=== PATIENT | female | born 1975 | race Caucasian/White ===

== ENCOUNTER 2018-01-23 20:50 | Emergency (ER) | payer OTHER ==
[~2018-01-23] VITALS: Ht 172.7 cm; Wt 108.9 kg
[2018-01-23 21:10] VITALS: BP 138/81
== END 2018-01-24 | disposition left against medical advice (07) ==
LOC: ER 20:50
DX: M54.9 Dorsalgia, unspecified (principal); Z53.21 Procedure and treatment not carried out due to patient leaving prior to being seen by health care provider

== ENCOUNTER 2021-10-01 00:22 | Emergency (ER) | payer OTHER ==
[~2021-10-01] VITALS: Ht 172.7 cm; Wt 145.1 kg
[2021-10-01 00:32] VITALS: BP 117/70
[2021-10-01] MEDS ORDERED: EPIN0.3I24 IJ (03:27)
[2021-10-01] MEDS ORDERED: DexAMETHasone SOD PHOS 10MG/1ML VIAL INJ PO ONE (03:30)
== END 2021-10-01 03:50 | disposition home or self-care (01) ==
LOC: EDBD 00:22 → ER 00:22
DX: T78.2XXA Anaphylactic shock, unspecified, initial encounter (principal); Z88.1 Allergy status to other antibiotic agents; Z88.8 Allergy status to other drugs, medicaments and biological substances
CPT/HCPCS: 99283; J1100

== ENCOUNTER 2024-11-14 17:03 | Emergency (ER) | payer OTHER ==
[~2024-11-14] VITALS: Ht 172.7 cm; Wt 150.8 kg
[~2024-11-14 17:03] MED LIST: EPIN0.3I24 IJ
[2024-11-14 17:28] VITALS: TEMP 98.4
--- NOTE | 2024-11-14 17:37 | ED.PDOC ---
Musculoskeletal HPI Comments 49 year old female presents to the ED with a chief complaint of LT lower leg pain onset last night. Patient states she began experiencing pain and swelling to LT lower leg last night, woke up this morning and noticed symptoms worsened. She also noticed mild erythema to LT leg. PMHx superficial clot, asthma, MS. Denies fall, injury, trauma, recent travel, fevers, chills, nausea, vomiting, shortness of breath. No other symptoms or modifying factors present at this time. Chief Complaint: Lower Extremity Time Seen by MD: 17:25 Primary Care Provider: ROSE MARIE Rodriguez Notes: Medications, Allergies Allergies: Coded Allergies: Iodine (Verified Allergy, Unknown, 01/23/18) Vancomycin (Verified Allergy, Unknown, 01/23/18) Venlafaxine (Verified Allergy, Unknown, 01/23/18) Home Meds Active Scripts Epinephrine (Epinephrine) 0.3 Mg/0.3 Ml Inj, 0.3 MG IJ ONCE PRN, #1 INJ 1 Refill Prov:MARCO OH MD 10/01/21 Information Source: Patient Mode of Arrival: Ambulatory Location: Left Extremity Location: Leg Timing: Days Prehospital treatment: None Severity: Moderate Able to Move Extremity: Yes Bear Weight: Limited Pain: Moderate Mechanism: Spontaneous Circumstances: Spontaneous Onset of Symptoms: Spontaneous Symptoms: Swelling, Pain DVT Risk Factors: NONE Associated signs and symptoms: Leg pain Past Medical History PAST MEDICAL HISTORY: Asthma Past Medical History (Other): MS, superficial clot RT leg Surgical History: Denies all surgeries HIDE COOKING OPERATOR History: No Pertinent HIDE COOKING OPERATOR History Family History Family History: Reviewed,noncontributory to illness Social History Smoker: Non-Smoker Alcohol: Denies ETOH Use Drugs: Denies Drug Use Lives In: Home Constitutional: denies: chills, diaphoresis, fatigue, fever, malaise, sweats, weakness, others EENTM: denies: blurred vision, double vision, ear bleeding, ear discharge, ear drainage, ear pain, ear ringing, eye pain, eye redness, hearing loss, mouth pain, mouth swelling, nasal discharge, nose bleeding, nose congestion, nose pain, photophobia, tearing, throat pain, throat swelling, voice changes, others Respiratory: denies: cough, hemoptysis, orthopnea, SOB at rest, shortness of breath, SOB with excertion, stridor, wheezing, others Cardiovascular: denies: chest pain, dizzy spells, diaphoresis, Dyspnea on exertion, edema, irregular heart beat, left arm pain, lightheadedness, pal pitations, PND, syncope, others Gastrointestinal: denies: abdomen distended, abdominal pain, blood streaked bowels, constipated, diarrhea, dysphagia, difficulty swallowing, hematemesis, melena, nausea, poor appetite, poor fluid intake, rectal bleeding, rectal pain, vomiting, others Genitourinary: denies: abnormal vagina bleeding, burning, dyspareunia, dysuria, flank pain, frequency, hematuria, incontinence, pain, , vagina discharge, urgency, others Neurological: denies: dizziness, fainting, headache, left sided numbness, left sided weakness, numbness, paresthesia, pre-existing deficit, right sided numbness, right sided weakness, seizure, speech problems, tingling, tremors, weakness, others Musculoskeletal: reports: others (LLE pain and swelling); denies: back pain, gout, joint pain, joint swelling, muscle pain, muscle stiffness, neck pain Integumetry: denies: bruises, change in color, change in hair/nails, dryness, laceration, lesions, lumps, rash, wounds, others Allergic/Immunocompromised: denies: Difficulty Healing, Frequent Infections, Hives, Itching, others Hematologic/Lymphatic: denies: anemia, blood clots, easy bleeding, easy bruising, swollen glands, others Endocrine: denies: excessive hunger, excessive sweating, excessive thirst, excessive urination, flushing, intolerance to cold, intolerance to heat, unexplained weight gain, unexplained weight loss, others Psychiatric: denies: anxiety, bipolar disorder, depression, hopeless, panic disorder, schizophrenia, sleepless, suicidal, others All Other Systems: Reviewed and Negative Physical Exam General Appearance: Normal HEENT: Normal ENT Inspection, Pharynx Normal, TMs Normal Neck: Full Range of Motion, Non-Tender, Normal, Normal Inspection Respiratory: Chest Non-Tender, Lungs Clear, No Accessory Muscle Use, No Respiratory Distress, Normal Breath Sounds Cardiovascular: No Edema, No JVD, No Murmur, No Gallop, Normal Peripheral Pulses, Regular Rate/Rhythm Breast Exam: Deferred Gastrointestinal: No Organomegaly, Non Tender, No Pulsatile Mass, Normal Bowel Sounds, Soft Genitalia: Deferred Pelvic: Deferred Rectal: Deferred Extremities: No calf tenderness, Normal capillary refill Musculoskeletal : Location: Left Extremity Location: Leg (lower leg with mild erythema to anterior aspect, TTP, warm to touch) Apperance: Normal Neurologic: Alert, ultimate hoops referee II-XII nml as Tested, No Motor Deficits, Normal Affect, Normal Mood, No Sensory Deficits Cerebellar Function: Normal Reflexes: Normal Skin: Dry, Normal Color, Warm Lymphatic: No Adenopathy Was a procedure done? Was a procedure done?: No Differential Diagnosis EXT Differential Diagnosis: Cellulitis, Deep Vein Thrombosis, Gout, Neurovascular injury X-Ray, Labs, Meds, VS Vital Signs Date Time Temp Pulse Resp B/P (MAP) Pulse Ox O2 Delivery O2 Flow Rate FiO2 11/14/24 18:48 75 18 111/74 (86) 97 11/14/24 18:48 93 18 98 Room Air 11/14/24 17:28 98.4 103 18 152/94 (113) 99 98.4 PATIENT: WILDER DELANEY ACCT: [id number] UNIT: [id number] : 1975 LOC: ER ROOM / BED: / AGE / SEX: 49 / F ADM STATUS: REG ER SERVICE 13 ORDERING PHYSICIAN: LAZARUS GAVIRIA PROCEDURE(s): LLDVT - LT Lower DVT REASON: left leg swelling ORDER NUMBER(s): [id number], ACCESSION NUMBER(s): [id number] Procedure: US LT Lower DVT Study Date and Requested Time: 11/14/2024 06:16 PM History: left leg swelling Comparison: None Technique: Multiple high resolution quinn-scale images with and without compression obtained of the left lower extremity veins, including the common femoral vein, deep femoral vein, proximal mid and distal superficial femoral vein, and popliteal vein. Additional limited images of the greater saphenous vein also obtained. Augmentation performed as indicated. Color and spectral doppler flow images obtained as indicated. Findings: No visible intraluminal venous thrombus. No evidence of incompressibility or abnormal color or spectral Doppler flow visualized in the left lower extremity veins including, the common femoral vein, deep femoral vein, proximal mid and distal superficial femoral vein, and popliteal vein. Greater saphenous vein grossly unremarkable. Impression: No sonographic evidence of left lower extremity deep venous thrombosis. X-Ray, Labs, Meds, VS Comment Imaging: X-rays and CT scans were reviewed and interpreted by this provider, imaging shows no fractures and no pathological disease. Pending radiology review. Laboratory: Labs reviewed and interpreted by this provider. No significant abnormalities noted. Patient has prior medical visits reviewed. Med reconciliation performed Vital signs reviewed Time of 1ST Reevaluation: 17:55 Reevaluation 1ST: Unchanged Patient Education/Counseling: Diagnosis, Treatment, Prognosis, Need For Follow Up (Follow up with the PCP in next 2-4 days. Return to emergency department if symptoms worsen over the next 24 hours.) Family Education/Counseling: No Family Present Departure 1 Departure Time of Disposition: 20:03 Impression: Primary Impression: Cellulitis Qualified Codes: L03.116 - Cellulitis of left lower limb Disposition: HOME / SELF CARE / HOMELESS Condition: Fair e-Prescriptions Amoxicillin & Pot Clavulanate (AUGMENTIN TABLET) 875 Mg Tb 875 MG PO BID for 7 Days, #14 TAB Prov: LAZARUS GAVIRIAP 11/14/24 Discharged With: Self Critical Care Note Critical Care Time?: No Stability Stability form required: No Heart Score Heart Score: Heart Score Response (Comments) Value History N/A 0 EKG N/A 0 Age N/A 0 Risk Factors N/A 0 Troponin N/A 0 Total 0 I personally scribed for LAZARUS GAVIRIA [employer] DOOR FRAME ASSEMBLER ([email or web address]) on 11/14/24 at 17:37. Electronically submitted by Marguerite Azul ([email or web address]). I personally scribed for LAZARUS GAVIRIA [employer] DOOR FRAME ASSEMBLER ([email or web address]) on 11/14/24 at 19:37. Electronically submitted by Michael Barbosa ([email or web address]). LAZARUS GAVIRIA [employer] C[employer] DOOR FRAME ASSEMBLER Nov 14, 2024 17:37
[2024-11-14 18:48] VITALS: BP 111/74; PULSE 93; O2SAT 98
--- NOTE | 2024-11-14 18:54 | DVH ---
Procedure: US LT Lower DVT Study Date and Requested Time: 11/14/2024 06:16 PM History: left leg swelling Comparison: None Technique: Multiple high resolution quinn-scale images with and without compression obtained of the le ft lower extremity veins, including the common femoral vein, deep femoral vein, proximal mid and dist al superficial femoral vein, and popliteal vein. Additional limited images of the greater saphenous v ein also obtained. Augmentation performed as indicated. Color and spectral doppler flow images obtain ed as indicated. Findings: No visible intraluminal venous thrombus. No evidence of incompressibility or abnormal color or spectr al Doppler flow visualized in the left lower extremity veins including, the common femoral vein, deep femoral vein, proximal mid and distal superficial femoral vein, and popliteal vein. Greater saphenou s vein grossly unremarkable. Impression: No sonographic evidence of left lower extremity deep venous thrombosis.
[2024-11-14] MEDS ORDERED: AUG875T PO (20:04)
[2024-11-14 20:18] VITALS: RESP 18
== END 2024-11-14 20:21 | disposition home or self-care (01) ==
LOC: ER 17:03
DX: L03.116 Cellulitis of left lower limb (principal); J45.909 Unspecified asthma, uncomplicated; Z88.1 Allergy status to other antibiotic agents; Z88.8 Allergy status to other drugs, medicaments and biological substances; Z79.899 Other long term (current) drug therapy; Z87.898 Personal history of other specified conditions
CPT/HCPCS: 93971